=== PATIENT | male | born 1960 | race Caucasian/White ===

== ENCOUNTER 2017-03-28 20:48 | Emergency (ER) | payer OTHER ==
--- NOTE | 2017-03-28 23:25 | ED ORDER SUMMARY ---
..... Patient: GITA ARAUJO OrderSheet [facility] VisitID: [id number] [address] [place] [address] 56y, M Registration Date/Time: 03/28/2017 ORDER SHEET Weight: 104.3 kg (stated) Allergies: None GENERAL ORDERS: - (wound dressing: neosporin/ non adhesive) (23:23 03/28/2017 EKoroleva P.A.-C) (23:50 HSoule) MEDICATION ORDERS: Xjqbrei-Zaudds-Hlexc Pertussis IM 0.5 mL (NOW, per protocol) (21:15 03/28/2017 KKnebel R.N. per protocol) (21:16 KKnebel R.N.) Augmentin PO 875 mg (NOW) (22:42 03/28/2017 EKoroleva P.A.-C) (0:00 KKnebel R.N.) Tdap IM 0.5 mL (NOW, per protocol) (22:42 03/28/2017 EKoroleva P.A.-C) (23:21 KKnebel R.N.) (Cancelled: Other23:22 EKoroleva P.A.-C) IV FLUIDS: ORDER SHEET NOTES: [Electronically signed by Nati Dumont P.A.-C (23:31 03/28/2017)] [Electronically signed by Aileen Green R.N. (00:06 03/29/2017)] [Electronically locked/signed by Aileen Green R.N. (00:06 03/29/2017)]
--- NOTE | 2017-03-28 23:25 | ED CLINICAL REPORT ---
Clinical Report - Physicians/Mid Levels [facility] [address] [place] [address] 03/28/2017 20:51 Patient: GITA ARAUJO Time Seen: 21:10. Arrived- By private vehicle. Historian- patient. HISTORY OF PRESENT ILLNESS Chief Complaint: DOG BITE. Location of injuries- (R. forearm). The injury occurred just prior to arrival. The animal reportedly appeared well and the immunization status of the animal is unknown (walking on street when patients dog and neighbor dog became involved, pt attempted to separate, sustained laceration to left forearm from bite). Occurred on a street. This was an "unprovoked" attack. 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 REVIEW OF SYSTEMS No headache, difficulty breathing, nausea or joint pain. All systems otherwise negative, except as recorded above. PAST HISTORY Tetanus immunization status is unknown. SOCIAL HISTORY Never smoker. Alcohol use. No drug use. ADDITIONAL NOTES The nursing notes have been reviewed. PHYSICAL EXAM Vital Signs: 03/28/2017 21:02 BP: 126/80. HR: 84. RR: 16. O2 saturation: 98%. Temp: 97.8 F. Pain level now: 110. Appearance: Alert. No backboard or C-collar. Head: Head normal on inspection. ENT: Ears normal on inspection. Nose normal on inspection. Neck: Normal inspection. CVS: Heart sounds normal. Pulses normal. Respiratory: Breath sounds normal. Chest nontender. Back: Normal inspection. Extremities: Left forearm: (gallegos surface triangle 1.5 cm lac, full thickness, moldy bleeding dorsal lac 3 cm). Left wrist. (full rom at wrist, good distal ns). Pelvis stable. Neuro: Oriented X 3. PROGRESS AND PROCEDURES Laceration Repair: Time: 23:29 Mar 28 2017. Location: (gallegos surface of forearm, triange). Time-out completed immediately before the procedure. Complexity: simple (local anesthesia used and sutured). Wound depth/shape- curved and irregular and involving fascia. Wound is clean. Neuro/vascular/tendon status: sensory deficit present distally. Tendon examined. No motor deficit distally. No tendon deficit. Local anesthesia provided using 1% lidocaine with epi. Prepped with Betadine. Wound explored, cleansed and irrigated extensively with normal saline. Subcutaneous closure: interrupted 4-0 (6 non abosrb). Post-procedure: he is stable and there are no complications. Bleeding is controlled and neuro-vascular status is intact distal to the wound. Dressing applied. Tetanus immunization given. Laceration Repair #2: Time: 23:29 Mar 28 2017. Time-out completed immediately before the procedure. Location: (left forearm/ gallegos surface). Length: 1.5cm. Complexity: simple (local anesthesia used and sutured). Wound depth/shape- linear and involving fascia. Wound is clean. Distal neuro/vascular/tendon status normal. Tendon examined. No sensory deficit or motor deficit distally. No tendon deficit. Local anesthesia provided using 1% lidocaine. Prepped with Betadine. Wound explored, cleansed and irrigated. Subcutaneous closure: interrupted 3-0 (4 sutures sutures). Post-procedure: he is stable and there are no complications. Bleeding is controlled and neuro-vascular status is intact distal to the wound. Dressing applied. Tetanus immunization given. Course of Care: here in the emergency Department patient with full range of motion, no active bleeding after lidocaine and epi used to anesthetize the laceration. Patient has no signs of a neurovascular compromise. Area explored, no signs of foreign object. Full range of motion. Tetanus immunization given. Patient given Augmentin. Patient is stable. Symptoms better. Patient/family counseled. Disposition: Discharged. Condition: good. CLINICAL IMPRESSION Dog bite to the left forearm. INSTRUCTIONS Protect wound and keep wound area clean. Apply bacitracin twice daily. (wound check in 2-3 days suture removal in 7-8 days). Warnings: TETANUS: You were given a tetanus shot during your visit. Make a note for future reference. Prescription Medications: Augmentin 875 mg: take 1 tablet orally every 12 hours for 10 days. No refill. Substitution is permissible. OTC Medications: Take OTC medications according to label instructions. Available over the counter. Acetaminophen (available over the counter): take according to label instructions. Motrin (available over the counter): take according to label instructions. Follow-up: Follow up with your doctor in. (Electronically signed by Nati Dumont P.A.-C 03/28/2017 23:31)
--- NOTE | 2017-03-28 23:25 | ED NURSING NOTES ---
Clinical Report - Nurses [facility] [address] [place] [address] 03/28/2017 20:51 Patient: GITA ARAUJO TRIAGE Triage time 21:Mar 28 2017. Acuity: LEVEL 4. --21:06 Aileen Green R.N. 21:02 03/28/17. BP: 126/80. HR: 84. RR: 16. O2 saturation: 98%. Temp: 97.8 F. Pain level now: 09/22. --21:06 Aileen Green R.N. Weight: 104.3 kg stated. Height/Length: 68 inches Per Patient. BMI: 35. --21:04 Aileen Green R.N. Medications Omeprazole Oral. --21:02 Aileen Green R.N. Allergies None. --21:04 Aileen Green R.N. History Arrived by private vehicle. Historian: patient. Accompanied by family. This started just prior to arrival. 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 PAST MEDICAL HX: Immunizations: status is unknown. SOCIAL HX: Never smoker. Occasional alcohol use. No drug use. No infectious disease exposure. SELF HARM ASSESSMENT: A self harm assessment was performed. The patient answered "no" to the question "Do you have thoughts of harming or killing yourself?" and "Have you recently had thoughts about harming or killing others?". FALL RISK ASSESSMENT: Fall risk assessment completed. No fall risk identified. NUTRITIONAL RISK ASSESSMENT: The nutritional risk assessment revealed no deficiencies. FUNCTIONAL ASSESSMENT: Functional assessment: no impairments noted. LEARNING NEEDS ASSESSMENT: The learning needs assessment revealed no barriers. ABUSE ASSESSMENT: Abuse assessment: The patient was asked "Do you feel safe in your home?". SKIN INTEGRITY ASSESSMENT: Skin integrity risk assessment completed. No skin integrity risk identified. --21:06 Aileen Green R.N. PROBLEMS: None. --21:04 Aileen Green R.N. ADDITIONAL SURGERIES: Knee Surgery. Tonsillectomy. --21:04 Aileen Green R.N. Interventions ID band on patient. To room. --21:06 Aileen Green R.N. PHYSICAL ASSESSMENT Ambulatory to room. GENERAL / NEURO / PSYCH: Alert. Oriented X 4. Appears in no acute distress. HEENT: No facial asymmetry noted. RESPIRATORY: Respirations not labored. CVS: Capillary refill less than 2 seconds. GI / : Abdomen soft and nontender. SKIN: Skin is warm and dry. --21:06 Aileen Green R.N. NURSING PROGRESS NOTES Patient identifiers checked. Call light placed in reach. Bed placed in lowest position. Brakes of bed on. --21:06 Aileen Green R.N. 21:10 03/28/17. Bleeding controlled. Wound irrigated. --21:18 Aileen Green R.N. 21:16 03/28/2017 ABYLWQP-ILIXDD-GNMSY PERTUSSIS IM 0.5 mL given. (Lot#: [id number], expiration date: 02/16/2019, Cutting Pressman: sanofi pasteur). Given in the left deltoid. Allergies verified and confirmed 5 rights. Vaccine information statement provided to the patient. --21:16 Aileen Green R.N. 21:16 03/28/2017 TDAP IM 0.5 mL given. (Lot#: [id number], expiration date: 02/16/2019, Cutting Pressman: sanofi pasteur). Given in the left deltoid. Allergies verified and confirmed 5 rights. Vaccine information statement provided to the patient. --23:21 Aileen Green R.N. 23:15 03/28/2017 Augmentin (Amoxicillin-Pot Clavulanate) PO Tablets 875 mg given. Allergies verified and confirmed 5 rights. --00:00 Aileen Green R.N. DISPOSITION / DISCHARGE Departure time: 2319Mar 28 2017. Condition at departure: improved. No learning barriers present. Reviewed medication(s) side effects, precautions, dosing and course information. Prescription(s) given to the patient. Reviewed referral to a primary care physician for followup. Patient verbalized understanding. Written instructions provided in Divehi. Discharge instructions not provided and reviewed with the patient. The patient was discharged home and accompanied by spouse. He left the Emergency Department ambulatory and via private vehicle. Spouse driving. --00:05 Aileen Green R.N. 00:04 03/29/17. BP: 128/76. HR: 76. RR: 16. O2 saturation: 98%. Pain level now: 10/23. --00:05 Aileen Green R.N. Locked/Released at 03/29/2017 0:07 by Aileen Green R.N.
--- NOTE | 2017-03-28 23:25 | ED ORDER SUMMARY ---
..... Patient: GITA ARAUJO OrderSheet [facility] VisitID: [id number] [address] [place] [address] 56y, M Registration Date/Time: 03/28/2017 ORDER SHEET Weight: 104.3 kg (stated) Allergies: None GENERAL ORDERS: - (wound dressing: neosporin/ non adhesive) (23:23 03/28/2017 EKoroleva P.A.-C) (23:50 HSoule) MEDICATION ORDERS: Jygjubz-Nvgvpe-Jgkdu Pertussis IM 0.5 mL (NOW, per protocol) (21:15 03/28/2017 KKnebel R.N. per protocol) (21:16 KKnebel R.N.) Augmentin PO 875 mg (NOW) (22:42 03/28/2017 EKoroleva P.A.-C) (0:00 KKnebel R.N.) Tdap IM 0.5 mL (NOW, per protocol) (22:42 03/28/2017 EKoroleva P.A.-C) (23:21 KKnebel R.N.) (Cancelled: Other23:22 EKoroleva P.A.-C) IV FLUIDS: ORDER SHEET NOTES: [Electronically signed by Nati Dumont P.A.-C (23:31 03/28/2017)] [Electronically signed by Aileen Green R.N. (00:06 03/29/2017)] [Electronically locked/signed by Aileen Green R.N. (00:06 03/29/2017)]
--- NOTE | 2017-03-28 23:25 | ED CLINICAL REPORT ---
Clinical Report - Physicians/Mid Levels [address] [place] [address] 03/28/2017 20:51 Patient: GITA ARAUJO Time Seen: 21:10. Arrived- By private vehicle. Historian- patient. HISTORY OF PRESENT ILLNESS Chief Complaint: DOG BITE. Location of injuries- (R. forearm). The injury occurred just prior to arrival. The animal reportedly appeared well and the immunization status of the animal is unknown (walking on street when patients dog and neighbor dog became involved, pt attempted to separate, sustained laceration to left forearm from bite). Occurred on a street. This was an "unprovoked" attack. 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 REVIEW OF SYSTEMS No headache, difficulty breathing, nausea or joint pain. All systems otherwise negative, except as recorded above. PAST HISTORY Tetanus immunization status is unknown. SOCIAL HISTORY Never smoker. Alcohol use. No drug use. ADDITIONAL NOTES The nursing notes have been reviewed. PHYSICAL EXAM Vital Signs: 03/28/2017 21:02 BP: 126/80. HR: 84. RR: 16. O2 saturation: 98%. Temp: 97.8 F. Pain level now: 110. Appearance: Alert. No backboard or C-collar. Head: Head normal on inspection. ENT: Ears normal on inspection. Nose normal on inspection. Neck: Normal inspection. CVS: Heart sounds normal. Pulses normal. Respiratory: Breath sounds normal. Chest nontender. Back: Normal inspection. Extremities: Left forearm: (gallegos surface triangle 1.5 cm lac, full thickness, moldy bleeding dorsal lac 3 cm). Left wrist. (full rom at wrist, good distal ns). Pelvis stable. Neuro: Oriented X 3. PROGRESS AND PROCEDURES Laceration Repair: Time: 23:29 Mar 28 2017. Location: (gallegos surface of forearm, triange). Time-out completed immediately before the procedure. Complexity: simple (local anesthesia used and sutured). Wound depth/shape- curved and irregular and involving fascia. Wound is clean. Neuro/vascular/tendon status: sensory deficit present distally. Tendon examined. No motor deficit distally. No tendon deficit. Local anesthesia provided using 1% lidocaine with epi. Prepped with Betadine. Wound explored, cleansed and irrigated extensively with normal saline. Subcutaneous closure: interrupted 4-0 (6 non abosrb). Post-procedure: he is stable and there are no complications. Bleeding is controlled and neuro-vascular status is intact distal to the wound. Dressing applied. Tetanus immunization given. Laceration Repair #2: Time: 23:29 Mar 28 2017. Time-out completed immediately before the procedure. Location: (left forearm/ gallegos surface). Length: 1.5cm. Complexity: simple (local anesthesia used and sutured). Wound depth/shape- linear and involving fascia. Wound is clean. Distal neuro/vascular/tendon status normal. Tendon examined. No sensory deficit or motor deficit distally. No tendon deficit. Local anesthesia provided using 1% lidocaine. Prepped with Betadine. Wound explored, cleansed and irrigated. Subcutaneous closure: interrupted 3-0 (4 sutures sutures). Post-procedure: he is stable and there are no complications. Bleeding is controlled and neuro-vascular status is intact distal to the wound. Dressing applied. Tetanus immunization given. Course of Care: here in the emergency Department patient with full range of motion, no active bleeding after lidocaine and epi used to anesthetize the laceration. Patient has no signs of a neurovascular compromise. Area explored, no signs of foreign object. Full range of motion. Tetanus immunization given. Patient given Augmentin. Patient is stable. Symptoms better. Patient/family counseled. Disposition: Discharged. Condition: good. CLINICAL IMPRESSION Dog bite to the left forearm. INSTRUCTIONS Protect wound and keep wound area clean. Apply bacitracin twice daily. (wound check in 2-3 days suture removal in 7-8 days). Warnings: TETANUS: You were given a tetanus shot during your visit. Make a note for future reference. Prescription Medications: Augmentin 875 mg: take 1 tablet orally every 12 hours for 10 days. No refill. Substitution is permissible. OTC Medications: Take OTC medications according to label instructions. Available over the counter. Acetaminophen (available over the counter): take according to label instructions. Motrin (available over the counter): take according to label instructions. Follow-up: Follow up with your doctor in. (Electronically signed by Nati Dumont P.A.-C 03/28/2017 23:31)
--- NOTE | 2017-03-28 23:25 | ED NURSING NOTES ---
Clinical Report - Nurses [facility] [address] [place] [address] 03/28/2017 20:51 Patient: GITA ARAUJO TRIAGE Triage time 21:Mar 28 2017. Acuity: LEVEL 4. --21:06 Aileen Green R.N. 21:02 03/28/17. BP: 126/80. HR: 84. RR: 16. O2 saturation: 98%. Temp: 97.8 F. Pain level now: 09/22. --21:06 Aileen Green R.N. Weight: 104.3 kg stated. Height/Length: 68 inches Per Patient. BMI: 35. --21:04 Aileen Green R.N. Medications Omeprazole Oral. --21:02 Aileen Green R.N. Allergies None. --21:04 Aileen Green R.N. History Arrived by private vehicle. Historian: patient. Accompanied by family. This started just prior to arrival. 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 PAST MEDICAL HX: Immunizations: status is unknown. SOCIAL HX: Never smoker. Occasional alcohol use. No drug use. No infectious disease exposure. SELF HARM ASSESSMENT: A self harm assessment was performed. The patient answered "no" to the question "Do you have thoughts of harming or killing yourself?" and "Have you recently had thoughts about harming or killing others?". FALL RISK ASSESSMENT: Fall risk assessment completed. No fall risk identified. NUTRITIONAL RISK ASSESSMENT: The nutritional risk assessment revealed no deficiencies. FUNCTIONAL ASSESSMENT: Functional assessment: no impairments noted. LEARNING NEEDS ASSESSMENT: The learning needs assessment revealed no barriers. ABUSE ASSESSMENT: Abuse assessment: The patient was asked "Do you feel safe in your home?". SKIN INTEGRITY ASSESSMENT: Skin integrity risk assessment completed. No skin integrity risk identified. --21:06 Aileen Green R.N. PROBLEMS: None. --21:04 Aileen Green R.N. ADDITIONAL SURGERIES: Knee Surgery. Tonsillectomy. --21:04 Aileen Green R.N. Interventions ID band on patient. To room. --21:06 Aileen Green R.N. PHYSICAL ASSESSMENT Ambulatory to room. GENERAL / NEURO / PSYCH: Alert. Oriented X 4. Appears in no acute distress. HEENT: No facial asymmetry noted. RESPIRATORY: Respirations not labored. CVS: Capillary refill less than 2 seconds. GI / : Abdomen soft and nontender. SKIN: Skin is warm and dry. --21:06 Aileen Green R.N. NURSING PROGRESS NOTES Patient identifiers checked. Call light placed in reach. Bed placed in lowest position. Brakes of bed on. --21:06 Aileen Green R.N. 21:10 03/28/17. Bleeding controlled. Wound irrigated. --21:18 Aileen Green R.N. 21:16 03/28/2017 AKLBLBX-ANJIMM-FLOLX PERTUSSIS IM 0.5 mL given. (Lot#: [id number], expiration date: 02/16/2019, Scouring Train Operator: sanofi pasteur). Given in the left deltoid. Allergies verified and confirmed 5 rights. Vaccine information statement provided to the patient. --21:16 Aileen Green R.N. 21:16 03/28/2017 TDAP IM 0.5 mL given. (Lot#: [id number], expiration date: 02/16/2019, Scouring Train Operator: sanofi pasteur). Given in the left deltoid. Allergies verified and confirmed 5 rights. Vaccine information statement provided to the patient. --23:21 Aileen Green R.N. 23:15 03/28/2017 Augmentin (Amoxicillin-Pot Clavulanate) PO Tablets 875 mg given. Allergies verified and confirmed 5 rights. --00:00 Aileen Green R.N. DISPOSITION / DISCHARGE Departure time: 2319Mar 28 2017. Condition at departure: improved. No learning barriers present. Reviewed medication(s) side effects, precautions, dosing and course information. Prescription(s) given to the patient. Reviewed referral to a primary care physician for followup. Patient verbalized understanding. Written instructions provided in Uzbek. Discharge instructions not provided and reviewed with the patient. The patient was discharged home and accompanied by spouse. He left the Emergency Department ambulatory and via private vehicle. Spouse driving. --00:05 Aileen rGeen R.N. 00:04 03/29/17. BP: 128/76. HR: 76. RR: 16. O2 saturation: 98%. Pain level now: 10/23. --00:05 Aileen Green R.N. Locked/Released at 03/29/2017 0:07 by Aileen Green R.N.
--- NOTE | 2017-03-29 00:07 | ED DISCHARGE INSTRUCTIONS ---
Patient: GITA ARAUJO General Instructions [facility] VisitID: [id number] [place] [address] 56y, M Registration Date/Time: 03/28/2017 Dog bite to the left forearm. INSTRUCTIONS Protect wound and keep wound area clean. Apply bacitracin twice daily. (wound check in 2-3 days suture removal in 7-8 days). Warnings: TETANUS: You were given a tetanus shot during your visit. Make a note for future reference. Prescription Medications: Augmentin 875 mg: take 1 tablet orally every 12 hours for 10 days. No refill. Substitution is permissible. OTC Medications: Take OTC medications according to label instructions. Available over the counter. Acetaminophen (available over the counter): take according to label instructions. Motrin (available over the counter): take according to label instructions. Follow-up: Follow up with your doctor in. ADDITIONAL INFORMATION Dog Bite If a dog has bitten you and the wound is deep enough to break the skin, an infection may occur. Therefore, you should watch for the warning signs listed below. The doctor may not close the wound completely. This is to allow fluid to drain in the event of an infection. Home Care Watch the wound for signs of infection listed below. In certain types of bites, antibiotics may be prescribed. Begin taking these as soon as possible, as directed until they are all gone. Rabies Prevention If you live in an area where rabies occurs in wild animals, the rabies virus can be passed to cats and dogs. An infected animal can pass the rabies virus to you during a bite. If ahealthy-looking pet dog has bitten you, it should be kept in a secure area for the next 10 days to watch for signs of illness. If the pet corporate events director wont cooperate with you, contact the [facility] animal control department (or local law enforcement). If the animal becomes ill or dies [id number] days, contact your animal control department at once. The animal must be tested for rabies. If the animal stays healthy for the next 10 days, then there is no danger of rabies in the dog or you. Pets fully vaccinated against rabies (2 shots) are at very low risk for the infection. However, because human rabies is almost always fatal, any biting dog should be kept in confinement for 10 days as an extra precaution. If a stray dog bit you, contact the animal control department. They can provide information on capture, quarantine, and animal rabies testing. If you are unable to locate the animal that bit you in the next 2days, and if rabies exists in your region, you must be evaluated for the rabies vaccine series. Contact your doctor or return here promptly. All animal bites should be reported to the [facility] animal control department. If you were not given a form to fill out, you can report it yourself by calling. Follow Up with your doctor as advised. Most skin wounds heal within 10 days. However, an infection may occur even with proper treatment. Check your woundevery 6 hoursfor 2 days, then at least once a day for the next two days for the signs of infection listed below. Get Prompt Medical Attention if any of the following occur: Signs of infection: Spreading redness Increased pain or swelling Fever of 100.4F (38C) or higher, or as directed by your healthcare provider Colored fluid or pus draining from the wound Headache, confusion, strange behavior, or a seizure (signs of a rabies infection) Laceration, Extremity (Sutures, [place], Or Tape) A laceration is a cut through the skin. This will usually require stitches (sutures) or kike if it is deep. Minor cuts may be treated with surgical tape closures. Home care The following guidelines will help you care for your laceration at home: Keep the wound clean and dry. If a bandage was applied and it becomes wet or dirty, replace it. Otherwise, leave it in place for the first 24 hours, then change it once a day or as directed. If stitches or kike were used, clean the wound daily: After removing the bandage, wash the area with soap and water. Use a wet cotton swab to loosen and remove any blood or crust that forms. After cleaning, keep the wound clean and dry. Talk with your doctor before applying any antibiotic ointment to the wound. Reapply the bandage. You may remove the bandage to shower as usual after the first 24 hours, but do not soak the area in water (no swimming) until the stitches or kike are removed. If surgical tape closures were used, keep the area clean and dry. If it becomes wet, blot it dry with a towel. The doctor may prescribe an antibiotic cream or ointment to prevent infection. Do not stop taking this medication until you have finished the prescribed course or the doctor tells you to stop. The doctor may also prescribe medications for pain. Follow the doctors instructions for taking these medications. If you have chronic liver or kidney disease or ever had a stomach ulcer or GI bleeding, talk with your doctor before using these medicines. Follow-up care Follow up with your health care provider. Most skin wounds heal within ten days. However, an infection may sometimes occur despite proper treatment. Therefore, check the wound daily for the signs of infection listed below. Stitches and kike should be removed within 714 days. If surgical tape closures were used, you may remove them after 10 days, if they have not fallen off by then. Notify your doctor if you notice persistent numbness or weakness in the injured extremity. (Note:A radiologist will review any X-rays that were taken. We will notify you of any new findings that may affect your care.) When to seek medical care Get prompt medical attention if any of these occur: Increasing pain in the wound Redness, swelling, or pus coming from the wound Fever of 100.4F (38C) or higher, or as directed by your health care provider If stitches or kike come apart or fall out before your next appointment If the surgical tape closures fall off within seven days, or the wound edges re-open Bleeding not controlled by direct pressure Diphtheria Toxoid Adsorbed, Pertussis Vaccine, Acellular (Adsorbed), Tetanus Toxoid, Adsorbed Suspension for injection What is this medicine? DIPHTHERIA and TETANUS TOXOIDS; PERTUSSIS VACCINE (dif THEER ee and TET n us TOK soids; per TUS iss vak SEEN) is used to prevent diphtheria, tetanus, and pertussis infections. How should I use this medicine? This vaccine is for injection into a muscle. It is given by a health manager managed care. A copy of Vaccine Information Statements will be given before each vaccination. Read this sheet carefully each time. The sheet may change frequently. Talk to your shear tender regarding the use of this vaccine in children. While the DTP vaccine may be given to children ages 6 weeks to 7 years and the Tdap vaccine may be given to children at least 10 years old, precautions do apply. What side effects may I notice from receiving this medicine? Side effects that you should report to your doctor or health manager managed care as soon as possible: allergic reactions like skin rash, itching or hives, swelling of the face, lips, or tongue breathing problems fever of 103 degrees F or more flu-like symptoms inconsolable crying infection pain, tingling, numbness in the hands or feet seizures swelling of arm or leg that was injected unusually weak or tired Side effects that usually do not require immediate medical attention (report these side effects to your doctor or health manager managed care if they continue or are bothersome): fussy, irritable loss of appetite fever of 102 degrees F or less pain, tenderness, redness, swelling, or a 'knot' at site where injected vomiting What may interact with this medicine? immune globulin medicines that suppress your immune function like adalimumab, anakinra, infliximab medicines to treat cancer medicines that treat or prevent blood clots like warfarin, enoxaparin, and dalteparin steroid medicines like prednisone or cortisone What if I miss a dose? It is important not to miss your dose. Call your doctor or health manager managed care if you are unable to keep an appointment. Where should I keep my medicine? This drug is given in a hospital or clinic and will not be stored at home. What should I tell my health care provider before I take this medicine? They need to know if you have any of these conditions: blood disorders like hemophilia fever or infection immune system problems neurologic disease seizures an unusual or allergic reaction to vaccines, thimerosal, latex, other medicines, foods, dyes, or preservatives or trying to get breast-feeding What should I watch for while using this medicine? See your health care provider for all shots of this vaccine as directed. To have protection from infection, you must have 3 shots of this vaccine plus boosters as needed. Tell your doctor right away if you have any serious or unusual side effects after getting this vaccine. Amoxicillin Trihydrate, Clavulanate Potassium Oral tablet What is this medicine? AMOXICILLIN; CLAVULANIC ACID (a mox i BECCA in; OSCAR campbell id) is a penicillin antibiotic. It is used to treat certain kinds of bacterial infections. It will not work for colds, flu, or other viral infections. How should I use this medicine? Take this medicine by mouth with a full glass of water. Follow the directions on the prescription label. Take at the start of a meal. Do not crush or chew. If the tablet has a score line, you may cut it in half at the score line for easier swallowing. Take your medicine at regular intervals. Do not take your medicine more often than directed. Take all of your medicine as directed even if you think you are better. Do not skip doses or stop your medicine early. Talk to your shear tender regarding the use of this medicine in children. Special care may be needed. What side effects may I notice from receiving this medicine? Side effects that you should report to your doctor or health manager managed care as soon as possible: allergic reactions like skin rash, itching or hives, swelling of the face, lips, or tongue breathing problems dark urine fever or chills, sore throat redness, blistering, peeling or loosening of the skin, including inside the mouth seizures trouble passing urine or change in the amount of urine unusual bleeding, bruising unusually weak or tired white patches or sores in the mouth or throat Side effects that usually do not require medical attention (report to your doctor or health manager managed care if they continue or are bothersome): diarrhea dizziness headache nausea, vomiting stomach upset vaginal or anal irritation What may interact with this medicine? allopurinol anticoagulants control pills methotrexate probenecid What if I miss a dose? If you miss a dose, take it as soon as you can. If it is almost time for your next dose, take only that dose. Do not take double or extra doses. Where should I keep my medicine? Keep out of the reach of children. Store at room temperature below 25 degrees C (77 degrees F). Keep container tightly closed. Throw away any unused medicine after the expiration date. What should I tell my health care provider before I take this medicine? They need to know if you have any of these conditions: bowel disease, like colitis kidney disease liver disease mononucleosis an unusual or allergic reaction to amoxicillin, penicillin, cephalosporin, other antibiotics, clavulanic acid, other medicines, foods, dyes, or preservatives or trying to get breast-feeding What should I watch for while using this medicine? Tell your doctor or health manager managed care if your symptoms do not improve. Do not treat diarrhea with over the counter products. Contact your doctor if you have diarrhea that lasts more than 2 days or if it is severe and watery. If you have diabetes, you may get a false-positive result for sugar in your urine. Check with your doctor or health manager managed care. control pills may not work properly while you are taking this medicine. Talk to your doctor about using an extra method of control. You have been given the following additional information: Dog Bite Laceration, Extrem (Suture, Staple, Or Tape) Diphtheria Toxoid Adsorbed, Pertussis Vaccine, Acellular (Adsorbed), Tetanus Toxoid, Adsorbed Suspension for injection Amoxicillin Trihydrate, Clavulanate Potassium Oral tablet (Electronically signed by Nati Dumont P.A.-C 03/28/2017 23:31)
--- NOTE | 2017-03-29 00:07 | ED MAR SUMMARY ---
..... Medication Administration Record [facility] [address] [place] [address] Patient: GITA ARAUJO Visit ID: [id number] 56y, M Weight: 104.3 kg Height/Length: 68 in BMI: 35 ALLERGIES: None Given :03/28/2017 Aileen Green R.N. Medication Administered: [id number] PERTUSSIS [IM], Dose: 0.5 mL IM. Medication Ordered: [id number] Pertussis IM 0.5 mL (NOW, per protocol). Given :03/28/2017 Aileen Green, RTiffNTiff Medication Administered: TDAP [IM], Dose: 0.5 mL IM. Medication Ordered: Tdap IM 0.5 mL (NOW, per protocol). Given 23:15 03/28/2017 Aileen Green RTiffN. Medication Administered: AUGMENTIN [PO] (AMOXICILLIN-POT CLAVULANATE), Dose: 875 mg Tablets PO. Medication Ordered: Augmentin PO 875 mg (NOW).
--- NOTE | 2017-03-29 00:07 | ED MAR SUMMARY ---
..... Medication Administration Record [facility] [address] [place] [address] Patient: GITA ARAUJO Visit ID: [id number] 56y, M Weight: 104.3 kg Height/Length: 68 in BMI: 35 ALLERGIES: None Given :03/28/2017 Aileen Green R.N. Medication Administered: [id number] PERTUSSIS [IM], Dose: 0.5 mL IM. Medication Ordered: [id number] Pertussis IM 0.5 mL (NOW, per protocol). Given :03/28/2017 Aileen Green, RTiffNTiff Medication Administered: TDAP [IM], Dose: 0.5 mL IM. Medication Ordered: Tdap IM 0.5 mL (NOW, per protocol). Given 23:15 03/28/2017 Aileen Green RTiffN. Medication Administered: AUGMENTIN [PO] (AMOXICILLIN-POT CLAVULANATE), Dose: 875 mg Tablets PO. Medication Ordered: Augmentin PO 875 mg (NOW).
--- NOTE | 2017-03-29 00:07 | ED DISCHARGE INSTRUCTIONS ---
Patient: GITA ARAUJO General Instructions [facility] VisitID: [id number] [place] [address] 56y, M Registration Date/Time: 03/28/2017 Dog bite to the left forearm. INSTRUCTIONS Protect wound and keep wound area clean. Apply bacitracin twice daily. (wound check in 2-3 days suture removal in 7-8 days). Warnings: TETANUS: You were given a tetanus shot during your visit. Make a note for future reference. Prescription Medications: Augmentin 875 mg: take 1 tablet orally every 12 hours for 10 days. No refill. Substitution is permissible. OTC Medications: Take OTC medications according to label instructions. Available over the counter. Acetaminophen (available over the counter): take according to label instructions. Motrin (available over the counter): take according to label instructions. Follow-up: Follow up with your doctor in. ADDITIONAL INFORMATION Dog Bite If a dog has bitten you and the wound is deep enough to break the skin, an infection may occur. Therefore, you should watch for the warning signs listed below. The doctor may not close the wound completely. This is to allow fluid to drain in the event of an infection. Home Care Watch the wound for signs of infection listed below. In certain types of bites, antibiotics may be prescribed. Begin taking these as soon as possible, as directed until they are all gone. Rabies Prevention If you live in an area where rabies occurs in wild animals, the rabies virus can be passed to cats and dogs. An infected animal can pass the rabies virus to you during a bite. If ahealthy-looking pet dog has bitten you, it should be kept in a secure area for the next 10 days to watch for signs of illness. If the pet truck body builder wont cooperate with you, contact the [facility] animal control department (or local law enforcement). If the animal becomes ill or dies [id number] days, contact your animal control department at once. The animal must be tested for rabies. If the animal stays healthy for the next 10 days, then there is no danger of rabies in the dog or you. Pets fully vaccinated against rabies (2 shots) are at very low risk for the infection. However, because human rabies is almost always fatal, any biting dog should be kept in confinement for 10 days as an extra precaution. If a stray dog bit you, contact the animal control department. They can provide information on capture, quarantine, and animal rabies testing. If you are unable to locate the animal that bit you in the next 2days, and if rabies exists in your region, you must be evaluated for the rabies vaccine series. Contact your doctor or return here promptly. All animal bites should be reported to the [facility] animal control department. If you were not given a form to fill out, you can report it yourself by calling. Follow Up with your doctor as advised. Most skin wounds heal within 10 days. However, an infection may occur even with proper treatment. Check your woundevery 6 hoursfor 2 days, then at least once a day for the next two days for the signs of infection listed below. Get Prompt Medical Attention if any of the following occur: Signs of infection: Spreading redness Increased pain or swelling Fever of 100.4F (38C) or higher, or as directed by your healthcare provider Colored fluid or pus draining from the wound Headache, confusion, strange behavior, or a seizure (signs of a rabies infection) Laceration, Extremity (Sutures, [place], Or Tape) A laceration is a cut through the skin. This will usually require stitches (sutures) or kike if it is deep. Minor cuts may be treated with surgical tape closures. Home care The following guidelines will help you care for your laceration at home: Keep the wound clean and dry. If a bandage was applied and it becomes wet or dirty, replace it. Otherwise, leave it in place for the first 24 hours, then change it once a day or as directed. If stitches or kike were used, clean the wound daily: After removing the bandage, wash the area with soap and water. Use a wet cotton swab to loosen and remove any blood or crust that forms. After cleaning, keep the wound clean and dry. Talk with your doctor before applying any antibiotic ointment to the wound. Reapply the bandage. You may remove the bandage to shower as usual after the first 24 hours, but do not soak the area in water (no swimming) until the stitches or kike are removed. If surgical tape closures were used, keep the area clean and dry. If it becomes wet, blot it dry with a towel. The doctor may prescribe an antibiotic cream or ointment to prevent infection. Do not stop taking this medication until you have finished the prescribed course or the doctor tells you to stop. The doctor may also prescribe medications for pain. Follow the doctors instructions for taking these medications. If you have chronic liver or kidney disease or ever had a stomach ulcer or GI bleeding, talk with your doctor before using these medicines. Follow-up care Follow up with your health care provider. Most skin wounds heal within ten days. However, an infection may sometimes occur despite proper treatment. Therefore, check the wound daily for the signs of infection listed below. Stitches and kike should be removed within 714 days. If surgical tape closures were used, you may remove them after 10 days, if they have not fallen off by then. Notify your doctor if you notice persistent numbness or weakness in the injured extremity. (Note:A radiologist will review any X-rays that were taken. We will notify you of any new findings that may affect your care.) When to seek medical care Get prompt medical attention if any of these occur: Increasing pain in the wound Redness, swelling, or pus coming from the wound Fever of 100.4F (38C) or higher, or as directed by your health care provider If stitches or kike come apart or fall out before your next appointment If the surgical tape closures fall off within seven days, or the wound edges re-open Bleeding not controlled by direct pressure Diphtheria Toxoid Adsorbed, Pertussis Vaccine, Acellular (Adsorbed), Tetanus Toxoid, Adsorbed Suspension for injection What is this medicine? DIPHTHERIA and TETANUS TOXOIDS; PERTUSSIS VACCINE (dif THEER ee and TET n us TOK soids; per TUS iss vak SEEN) is used to prevent diphtheria, tetanus, and pertussis infections. How should I use this medicine? This vaccine is for injection into a muscle. It is given by a health daycare assistant. A copy of Vaccine Information Statements will be given before each vaccination. Read this sheet carefully each time. The sheet may change frequently. Talk to your business analytics specialist regarding the use of this vaccine in children. While the DTP vaccine may be given to children ages 6 weeks to 7 years and the Tdap vaccine may be given to children at least 10 years old, precautions do apply. What side effects may I notice from receiving this medicine? Side effects that you should report to your doctor or health daycare assistant as soon as possible: allergic reactions like skin rash, itching or hives, swelling of the face, lips, or tongue breathing problems fever of 103 degrees F or more flu-like symptoms inconsolable crying infection pain, tingling, numbness in the hands or feet seizures swelling of arm or leg that was injected unusually weak or tired Side effects that usually do not require immediate medical attention (report these side effects to your doctor or health daycare assistant if they continue or are bothersome): fussy, irritable loss of appetite fever of 102 degrees F or less pain, tenderness, redness, swelling, or a 'knot' at site where injected vomiting What may interact with this medicine? immune globulin medicines that suppress your immune function like adalimumab, anakinra, infliximab medicines to treat cancer medicines that treat or prevent blood clots like warfarin, enoxaparin, and dalteparin steroid medicines like prednisone or cortisone What if I miss a dose? It is important not to miss your dose. Call your doctor or health daycare assistant if you are unable to keep an appointment. Where should I keep my medicine? This drug is given in a hospital or clinic and will not be stored at home. What should I tell my health care provider before I take this medicine? They need to know if you have any of these conditions: blood disorders like hemophilia fever or infection immune system problems neurologic disease seizures an unusual or allergic reaction to vaccines, thimerosal, latex, other medicines, foods, dyes, or preservatives or trying to get breast-feeding What should I watch for while using this medicine? See your health care provider for all shots of this vaccine as directed. To have protection from infection, you must have 3 shots of this vaccine plus boosters as needed. Tell your doctor right away if you have any serious or unusual side effects after getting this vaccine. Amoxicillin Trihydrate, Clavulanate Potassium Oral tablet What is this medicine? AMOXICILLIN; CLAVULANIC ACID (a mox i BECCA in; OSCAR campbell id) is a penicillin antibiotic. It is used to treat certain kinds of bacterial infections. It will not work for colds, flu, or other viral infections. How should I use this medicine? Take this medicine by mouth with a full glass of water. Follow the directions on the prescription label. Take at the start of a meal. Do not crush or chew. If the tablet has a score line, you may cut it in half at the score line for easier swallowing. Take your medicine at regular intervals. Do not take your medicine more often than directed. Take all of your medicine as directed even if you think you are better. Do not skip doses or stop your medicine early. Talk to your business analytics specialist regarding the use of this medicine in children. Special care may be needed. What side effects may I notice from receiving this medicine? Side effects that you should report to your doctor or health daycare assistant as soon as possible: allergic reactions like skin rash, itching or hives, swelling of the face, lips, or tongue breathing problems dark urine fever or chills, sore throat redness, blistering, peeling or loosening of the skin, including inside the mouth seizures trouble passing urine or change in the amount of urine unusual bleeding, bruising unusually weak or tired white patches or sores in the mouth or throat Side effects that usually do not require medical attention (report to your doctor or health daycare assistant if they continue or are bothersome): diarrhea dizziness headache nausea, vomiting stomach upset vaginal or anal irritation What may interact with this medicine? allopurinol anticoagulants control pills methotrexate probenecid What if I miss a dose? If you miss a dose, take it as soon as you can. If it is almost time for your next dose, take only that dose. Do not take double or extra doses. Where should I keep my medicine? Keep out of the reach of children. Store at room temperature below 25 degrees C (77 degrees F). Keep container tightly closed. Throw away any unused medicine after the expiration date. What should I tell my health care provider before I take this medicine? They need to know if you have any of these conditions: bowel disease, like colitis kidney disease liver disease mononucleosis an unusual or allergic reaction to amoxicillin, penicillin, cephalosporin, other antibiotics, clavulanic acid, other medicines, foods, dyes, or preservatives or trying to get breast-feeding What should I watch for while using this medicine? Tell your doctor or health daycare assistant if your symptoms do not improve. Do not treat diarrhea with over the counter products. Contact your doctor if you have diarrhea that lasts more than 2 days or if it is severe and watery. If you have diabetes, you may get a false-positive result for sugar in your urine. Check with your doctor or health daycare assistant. control pills may not work properly while you are taking this medicine. Talk to your doctor about using an extra method of control. You have been given the following additional information: Dog Bite Laceration, Extrem (Suture, Staple, Or Tape) Diphtheria Toxoid Adsorbed, Pertussis Vaccine, Acellular (Adsorbed), Tetanus Toxoid, Adsorbed Suspension for injection Amoxicillin Trihydrate, Clavulanate Potassium Oral tablet (Electronically signed by Nati Dumont P.A.-C 03/28/2017 23:31)
--- NOTE | 2017-03-29 00:07 | ED MED RECONCILIATION SUMMARY ---
Patient: GITA ARAUJO Medication Reconciliation Report [facility] VisitID: [id number] [address] [place] [address] 56y, M Registration Date/Time: 03/28/2017 Weight: 104.3 kg Height/Length: 68 in. BMI: 35.0 ALLERGIES: None The patient's Home Medications are listed below: THE FOLLOWING MEDICATIONS NEED TO BE RECONCILED: Omeprazole Oral The source(s) of the original Home Medication information: Not obtained. The following Medications were given to the patient in the Emergency Department: [id number] PERTUSSIS [IM] IM 0.5 mL, administered: 03/28/2017 9:16:00 PM TDAP [IM] IM 0.5 mL, administered: 03/28/2017 9:16:00 PM Augmentin [PO] PO 875 mg, administered: 03/28/2017 11:15:00 PM The following Medications were prescribed to the patient: Take OTC medications according to label instructions. Available over the counter. -- Nati Dumont, P.A.-C Acetaminophen (available over the counter): take according to label instructions. -- Nati Dumont, P.A.-C Motrin (available over the counter): take according to label instructions. -- Nati Dumont, P.A.-C Augmentin 875 mg: take 1 tablet orally every 12 hours for 10 days. No refill. Substitution is permissible. -- Nati Dumont, P.A.-C
--- NOTE | 2017-03-29 00:07 | ED MED RECONCILIATION SUMMARY ---
Patient: GITA ARAUJO Medication Reconciliation Report [facility] VisitID: [id number] [address] [place] [address] 56y, M Registration Date/Time: 03/28/2017 Weight: 104.3 kg Height/Length: 68 in. BMI: 35.0 ALLERGIES: None The patient's Home Medications are listed below: THE FOLLOWING MEDICATIONS NEED TO BE RECONCILED: Omeprazole Oral The source(s) of the original Home Medication information: Not obtained. The following Medications were given to the patient in the Emergency Department: [id number] PERTUSSIS [IM] IM 0.5 mL, administered: 03/28/2017 9:16:00 PM TDAP [IM] IM 0.5 mL, administered: 03/28/2017 9:16:00 PM Augmentin [PO] PO 875 mg, administered: 03/28/2017 11:15:00 PM The following Medications were prescribed to the patient: Take OTC medications according to label instructions. Available over the counter. -- aNti Dumont, P.A.-C Acetaminophen (available over the counter): take according to label instructions. -- Nati Dumont, P.A.-C Motrin (available over the counter): take according to label instructions. -- Nati Dumont, P.A.-C Augmentin 875 mg: take 1 tablet orally every 12 hours for 10 days. No refill. Substitution is permissible. -- Nati Dumont, P.A.-C
== END 2017-03-28 23:20 | disposition home or self-care (01) ==
LOC: ED SRH 20:48
DX: S51.852A Open bite of left forearm, initial encounter (principal); W54.0XXA Bitten by dog, initial encounter; Y93.9 Activity, unspecified; Y92.9 Unspecified place or not applicable; Y99.9 Unspecified external cause status